=== PATIENT | male | born 1965 | race African-American/Black ===

== ENCOUNTER → 2020-06-27 | Outpatient (CLI) | payer OTHER ==
[~2020-06-27] MED LIST: AMLODIPINE BESY10 MG PO; ATORVASTATIN CA10 MG PO; FINASTERIDE5 MG PO; FLEXERIL PO; GABAPENTIN 100100 MG PO; MULTIVITAMINS1 EAC7 PO; MYRBETRIQ25 MG PO; PAROXETINE HCL20 MG PO; PROAIR HFA8.5 GM INH; PROTONIX40 M2 PO; TAMSULOSIN HCL0.4 MG PO; TERBINAFINE HC250 MG PO
== END ==
LOC: LAB 11:43
PROVIDERS: ATTEND Podiatrist
DX: Z01.812 Encounter for preprocedural laboratory examination (principal); Z20.828 Contact with and (suspected) exposure to other viral communicable diseases

== ENCOUNTER 2020-07-02 07:33 | Day surgery (SDC) | payer OTHER ==
[~2020-07-02] VITALS: Ht 180.3 cm; Wt 76.7 kg
--- NOTE | ~2020-07-02 | O ---
[facility] [place] [address] OPERATIVE REPORT Name: ABDOULAYE MORALES Room #: DEP [facility]#: [id number] Admission: 07/02/20 Attend Phys: Mich Duval DPM Discharge: 07/02/20 Date of : 63 Report #: [id number] THIS REPORT FOR: cc: Nu Baig MD,Mich Cruz MD, DPM ~ CC: Mich Baig DATE OF SERVICE: 07/02/2020 SURGEON: Mich Duval DPM. PREOPERATIVE DIAGNOSIS: Painful plantar lesion, right foot. POSTOPERATIVE DIAGNOSIS: Painful plantar lesion, right foot. PROCEDURE: Excision of lesion, right foot. ANESTHESIA: IV sedation with local nerve block. HEMOSTASIS: Not needed. ESTIMATED BLOOD LOSS: Minimal. COMPLICATIONS: There were no complications during the procedure or the anesthesia. PREOPERATIVE COURSE: This patient was seen with a painful lesion on the plantar aspect of the right foot. This was debrided on a couple of occasions in the office, which gave him only short term relief. It was decided upon that the excision of this lesion would likely remove his discomfort permanently. This could not be performed in the office as to his pain tolerance. We opted to do this under outpatient surgery, IV sedation and the patient understood the risks and complications of surgery and signed the preoperative consent form, admitting to his understanding. OPERATIVE REPORT: The patient was wheeled to the operating room in usual supine condition, transferred to the operating table, given IV sedation. Once IV sedation was found to be adequate, local nerve block was given to the right foot. The right foot was then prepped and draped in the usual manner. Upon re-entering the operating room, anesthesia was checked and found to be adequate. A 4-mm lesion was found on the plantar aspect of the right foot and was sharply excised down past the basement membrane. Cautery unit was used to provide hemostasis during the procedure and the lesion was removed in total and sent for gross and micro inspection. Sterile bandage was placed over the wound with a [facility] [employer] [address] OPERATIVE REPORT Name: ABDOULAYE MORALES Room #: DEP [facility] M.R.#: [id number] Admission: 07/02/20 Attend Phys: Mich Duval DPM Discharge: 07/02/20 Date of : 63 Report #: [id number] gauze dressing on top for prevention of further bleeding through the dressing and he left the operating room in stable condition and will ambulate in a postoperative shoe and take Lortab 7.5 mg/325 for pain management and be followed up in about 3 days for postoperative wound management. By: [id number] Mich Duval DPM /nt
[2020-07-02 09:00] VITALS: BP 130/81
--- NOTE | 2020-07-02 10:15 | EKG ---
[facility] [place] [address] ELECTROCARDIOGRAM REPORT Name: ABDOULAYE MORALES Room #: [facility]-[address] [place] [address] M.R.#: [id number] Admission: 07/02/20 Attend Phys: Mich Duval DPM Discharge: Date of : 63 Report #: [id number] THIS REPORT FOR: cc: Nu Baig MD, Linda MD Lundgren,Blake Conner MD [facility] ~ THIS REPORT FOR: //name// [facility] Test Date: 2020-07-02 Test Time: 08:03:39 Pat Name: ABDOULAYE MORALES Department: Room: [facility] Gender: M Funeral Location Manager: ARTURO : 1965 Requested By: Love Wu Order Number: [id number] MD: Blake Edgar Measurements Intervals [place] Rate: 75 P: 70 [place]: 149 QRS: 57 QRSD: 71 T: 90 QT: 372 QTc: 416 Interpretive Statements Sinus rhythm Borderline T wave abnormalities No previous ECG available for comparison Electronically Signed On 07-02-2020 10:15:02 LINE SUPERVISOR by Blake Edgar [email or web address] <ELECTRONICALLY SIGNED> By: Blake Edgar MD, [facility] 07/02/20 1015 2 2 Blake Edgar MD, [facility] /EPI
--- NOTE | 2020-07-03 17:06 | PATH ---
[facility] [address] [place] [address] PATHOLOGY RPT PROCEDURE Name: ABDOULAYE MORALES Room #: DEP [facility].#: [id number] Admission: 07/02/20 Date of : 63 Discharge: 07/02/20 Report #: [id number] Path Case #: [id number] [facility] Accession Number: [id number] . 01 Material submitted: . foot - SKIN LESION RIGHT FOOT. Modifiers: right . 01 Clinical history: . RIGHT PLANTAR WART/LESION . 02 Diagnosis: Skin lesion, right foot, biopsy: - Verruca plantaris. - Negative for malignancy in the sections examined. (IUV:pit 07/03/2020) QTP 07/03/2020 1502 Local . 02 Electronically signed: . Tatianna Blum MD, Pathologist NPI- [id number] . 01 Gross description: . Received in formalin labeled "Abdoulaye Morales, skin lesion right foot" are two lieberman-yellow roughened skin lesions measuring 0.6 x 0.5 x 0.3 cm and 0.7 x 0.7 x 0.5 cm. The apparent margins are inked black. The pieces are bisected and submitted in cassettes A1-A2. [place] [place] [facility] 07/02/2020 1813 Local . 02 Pathologist provided ICD-10: B07.0 . 02 CPT . 040351 Specimen Comment: A courtesy copy of this report has been sent to [phone], [phone] Specimen Comment: [phone] Specimen Comment: Report sent to / DR CROUCH Performed at: [address], [place] [id number] MD Elliot Beal MD Phone: [phone] Performed at: [address] [id number] MD Tatianna Blum MD Phone: [phone]
== END 2020-07-02 11:05 | disposition home or self-care (01) ==
LOC: OR 07:33 → TBA 07:34 → OR 09:34
PROVIDERS: ATTEND Podiatrist
DX: B07.0 Plantar wart (principal); I10 Essential (primary) hypertension; E78.00 Pure hypercholesterolemia, unspecified; J43.9 Emphysema, unspecified; F32.9 Major depressive disorder, single episode, unspecified; K21.9 Gastro-esophageal reflux disease without esophagitis; N40.0 Benign prostatic hyperplasia without lower urinary tract symptoms; F17.210 Nicotine dependence, cigarettes, uncomplicated; Z98.890 Other specified postprocedural states; Z79.899 Other long term (current) drug therapy
CPT/HCPCS: 50010; 50101; 50386; 57091; 57178; 62110; 62900; 70005